=== PATIENT | male | born 2000 | race African-American/Black ===

== ENCOUNTER 2023-02-20 08:45 | Emergency (ER) | payer OTHER, SELFPAY ==
--- NOTE | ~2023-02-20 | XR_ITS ---
EXAMINATION: XR HAND, RIGHT CLINICAL INFORMATION: Middle finger crush injury. COMPARISON: None available. TECHNIQUE: PA, lateral, and oblique views of the right hand. An indicator arrow points to the distal aspect of the third digit. FINDINGS: The bones and soft tissues are normal. No fracture. Alignment is anatomic. Joint spaces are maintained. No erosions or soft tissue calcifications. XR/XR hand RT min 3V IMPRESSION: Unremarkable right hand. Specifically, the third digit appears intact.
[2023-02-20 08:49] VITALS: BP 130/72; PULSE 62; RESP 19; TEMP 36.6; O2SAT 98; BMI 26.0
--- NOTE | 2023-02-20 09:20 | ED.EXTPRO ---
HPI - Extremity Problem General Chief complaint: Extremity Injury, Upper Stated complaint: finger injury at work Time Seen by Provider: 02/20/23 09:17 Source: patient, RN notes reviewed and old records reviewed Mode of arrival: ambulatory History of Present Illness HPI Narrative: 22-year-old male with no significant past medical history presenting to the ED complaining of right 3rd digit crush injury/nail being pulled back s/p getting caught in running belt at work [employer]. Also reports slight injury to 2nd digit. Denies numbness, tingling, weakness, fever/chills. TDap unknown MD Complaint: extremity pain Onset (ago): hour(s) Related Data Allergies Allergy/AdvReac Type Severity Reaction Status Date / Time No Known Allergies Allergy Verified 02/20/23 08:49 Review of Systems Review of Systems: Constitutional: No Fever, No Chills ENT/Mouth: No Ear Pain, No Nasal Congestion, No sore throat, No Rhinorrhea, No Swallowing Difficulty Cardiovascular: No Chest Pain, No SOB Respiratory: No Cough, No Sputum, No Wheezing Musculoskeletal: + joint pain, No Myalgias, No Joint Swelling Skin: + Skin Lesions, No rash Neuro: No Weakness, No Numbness, No Paresthesias Yes all other systems are reviewed and are negative Constitutional: Constitutional: Reports as per [facility] Past Medical History Attestation statement: The following information was validated with the patient. Source: old records reviewed Social History Social History Advance Directives: No Physical Exam Vital Signs: Vital Signs: Last Vital Signs Temp 98 F 02/20/23 08:49 Pulse 62 02/20/23 08:49 Resp 19 02/20/23 08:49 BP 130/72 02/20/23 08:49 Pulse Ox 98 02/20/23 08:49 O2 Del Method Room Air 02/20/23 08:49 BMI result Body Mass Index 26.0 Const: General: cooperative, healthy appearing and no acute distress Orientation/consciousness: patient oriented x3 Limitations: no limitations HEENT: Head: Yes normal to inspection and Yes atraumatic Ears: hearing grossly normal bilaterally General nose exam: Normal external nose present Face and sinus: Yes normal facial exam Eyes: General: appearance normal, both eyes and all related structures EOM: EOMs intact bilaterally Neck: Neck: Yes normal visual inspection and Yes no meningeal signs Resp: Effort & Inspection: normal respiratory effort and no respiratory distress Cardio: Rate: regular rate Peripheral pulses: Peripheral pulses 2+ throughout Skin: Rashes: no rashes Wounds: no wounds Neuro: General: patient oriented x3, tone normal and no meningeal signs Cranial nerves: Yes CN's II-XII intact bilaterally Gait exam (Neuro): Normal gait present Extrem: Other: Right distal 3rd digit with mild swelling and lifted fingernail, nail bed intact without disruption. No appreciable laceration/avulsion. Tender to palpation. mild limited DIP extension, suspect from pain +small abrasion to right distal 2nd digit w/o nail involvement NV intact Course Course Course Narrative: XR hand RT min 3V IMPRESSION: Unremarkable right hand. Specifically, the third digit appears intact. >> patient placed in finger splint in hyper extension for possible tendon/avulsion injury, recommended close orthopedic follow-up Results discussed with patient including worrisome signs and symptoms and strict return precautions, and when to return to the emergency department. They verbalized understanding and feel safe for discharge at this time. Medications Administered Discontinued Medications Generic Name Dose Route Start Last Admin Trade Name Freq PRN Reason Stop Dose Admin Diphtheria/Tetanus/Acell Pertussis 0.5 ml 02/20/23 10:49 02/20/23 10:58 Diphth,Pertus(Acell),Tet Adult 0.5 Ml Syringe IM 02/20/23 10:50 0.5 ml .ONCE ONE Administration Medical Decision Making Medical Decision Making MDM Narrative: 22-year-old male with no significant past medical history presenting to the ED complaining of right 3rd digit crush injury/nail being pulled back s/p getting caught in running belt at work [employer]. On exam vital signs stable, NAD, nontoxic appearing, physical exam as above. Crush injury noted to right 3rd digit without open wound. Nail bed fully intact. Small abrasion to 2nd digit. Possible small avulsion/tendon injury. Rule out fracture/crush injury. No evidence of infection/cellulitis or laceration Plan: X-rays Please refer to course for remaining clinical decision making, interpretation of labs/imaging results, and discussions with consultants and/or family members. Differential Diagnosis Differential Diagnoses: The differential diagnosis associated with the presentation includes As above Independent Interpretation I performed an independent interpretation of an: Plain X-Ray Radiology Impression Discussion of test interpretation with radiology: I have reviewed the radiologist's reading. External Record Review External record reviewed: Inpatient record, Office record, Outpatient record, Prior outpatient labs, Prior outpatient radiology, Primary care record and Outside ED record Tests considered The following testing was considered but not selected: As above Prescription Management I considered prescription management with: Pain Medication and Antibiotic Discharge Plan Discharge Clinical Impression: Crush injury to finger Patient Disposition: Home, Self-Care Instructions: Crush Injury (ED) Additional Instructions: Your x-ray was unremarkable. We were concerned of a possible injury to your extensor tendon, please wear splint at all times, take off to shower however reapply immediately afterwards Please follow-up with orthopedic hand, make an appointment in 1 week Keep your nail intact as long as possible, your nail may fall off however avoid additional trauma to the area If begins to look infected return to the ED Referrals: [facility] [place]Provider Group] - 1 week Interventions: ED Discharge Assessment Last Done: 02/20/23 11:02 Discharge Date/Time: 02/20/23 11:02
--- NOTE | 2023-02-20 10:34 | MHC.EDTECH ---
finger splint was placed on right 3rd digit. pt tolerated well, PA aware
[2023-02-20] MEDS: Diphth,Pertus(ACell),Tet Adult 0.5 ML SYRINGE IM (10:58)
== END 2023-02-20 11:02 | disposition home or self-care (01) ==
PROVIDERS: Emergency Provider Emergency Medicine Emergency Medical Services
DX: S69.91XA Unspecified injury of right wrist, hand and finger(s), initial encounter (principal); S60.410A Abrasion of right index finger, initial encounter; W31.82XA Contact with other commercial machinery, initial encounter; Y93.89 Activity, other specified; Y92.59 Other trade areas as the place of occurrence of the external cause; Y99.0 Civilian activity done for income or pay
CPT/HCPCS: 29130; 73130; 90471; 90715; 99283; 99284

== ENCOUNTER 2023-02-26 10:28 | Outpatient (AMB) | payer OTHER, SELFPAY ==
[2023-02-26 10:32] VITALS: BMI 25.9
--- NOTE | 2023-02-26 10:32 | A.OFFVIS_ITS ---
Intake Vital Signs 02/26/23 10:32 Height 6 ft 2 in Weight 202 lb BMI 25.9 Intake Visit Reasons: FC- ? small avulsion/tendon injury 2/3 fingers rt Intake Note: Chip 22 yr old male presents today with his brother Akira for his W/C from 02/20/23 right hand middle finger. Patient states he is ambidextrous. State while at work he hand was caught in a cover belt injuring his finger. Seen in ED where xrays done and patient was splinted. Currently states he has no pain unless he removes his splint. Denies numbness, tingling or locking of any finger. Allergies No Known Allergies Allergy (Verified 02/26/23 10:32) HPI FC- ? small avulsion/tendon injury 2/3 fingers rt HPI Details 22-year-old male who presents in the office today with is brother (Akira), as a new patient, for an evaluation of right hand pain. The patient presented to the ED on 02/20/2023 status post a crushing injury to the right 3rd digit pulling the nail back when he got caught in the running belt at work. Also reported a possible injury to the right 2nd digit as well. X-rays of the right hand were obtained. He was placed in a finger splint in hyper-extension for a possible tendon/avulsion injury. The patient states he has no pain unless he removes the splint. He denies numbness, tingling, or locking in the digits. He reports his pain is located under the nail. Patient works at [employer]. Patient reports he is ambidextrous. [facility], LAT[facility] Surgical History (Updated 02/26/23 @ 10:39 by TYSON Miller) H/O eye surgery Social History (Updated 02/26/23 @ 10:33 by TYSON Miller) Current occupational status: employed Current occupation: box handler at [employer] Review of Systems Const All systems reviewed & are unremarkable except as noted in HPI and below Physical Exam Vital Signs: BMI result Body Mass Index 25.9 Const General: cooperative and no acute distress Orientation/consciousness: patient oriented x3 Resp Effort & Inspection: normal respiratory effort and able to speak in complete sentences Cardio Peripheral pulses: Peripheral pulses 2+ throughout Skin General skin exam: no rashes or lesions noted Neuro General: patient oriented x3 Extrem Other: Right middle finger: Normal to inspection. No ecchymosis, erythema, or edema. Some disruption in the nail bed with subungual hematoma. Able to perform full finger flexion, extension, abduction, adduction, finger cross, okay sign, and thumbs up without deficit. Able to make a closed fist. Sensation intact. Capillary refill is brisk. Radial pulse intact. Assessment & Plan Assessment & Plan (1) Crushing injury of right middle finger: Code(s): S67.192A - Crushing injury of right middle finger, initial encounter Plan Mr. Guallpa is a 22-year-old male who presents in the office today with is brother (Akira), as a new patient, for an evaluation of right hand pain. The patient presented to the ED on 02/20/2023 status post a crushing injury to the right 3rd digit pulling the nail back when he got caught in the running belt at work. Also reported a possible injury to the right 2nd digit as well. X-rays of the right hand were obtained. He was placed in a finger splint in hyper- extension for a possible tendon/avulsion injury. The patient states he has no pain unless he removes the splint. He denies numbness, tingling, or locking in the digits. He reports his pain is located under the nail. Patient works at [employer]. Patient reports he is ambidextrous. He can return to normal activities as tolerated. He can discontinue the use of the splint. Follow up will be PRN, or sooner if needed. X-rays of the right hand which were obtained while in the office today and were reviewed by me, Neli Peres PA-C, revealed no evidence of acute fracture or dislocation. X-rays of the right hand, obtained on 02/20/2023, revealed: Unremarkable right hand. Specifically, the third digit appears intact. Orders: Orders XR hand RT min 3V Today M79.643 - Pain in unspecified hand Patient Instructions: Scribed for Neli Peres PA-C by Lily Sam medical office specialist, on 02/26/2023 at 10:29 am, EST. Coding Level of Care Code New Pt Level 3 (00155) Diagnoses Crushing injury of right middle finger S67.192A
== END 2023-02-26 11:14 | disposition home or self-care (01) ==
PROVIDERS: Visit Provider Physician Assistant
DX: S67.192A Crushing injury of right middle finger, initial encounter (principal)
CPT/HCPCS: 99203

== ENCOUNTER 2023-02-26 10:28 | Outpatient (REF) | payer OTHER, SELFPAY ==
--- NOTE | ~2023-02-26 | XR_ITS ---
EXAMINATION: XR HAND, RIGHT CLINICAL INFORMATION: Pain. COMPARISON: None available. TECHNIQUE: PA, lateral, and oblique views of the right hand. FINDINGS: The bones and soft tissues are normal. No fracture. Alignment is anatomic. Joint spaces are maintained. No erosions or soft tissue calcifications. XR/XR hand RT min 3V IMPRESSION: Normal right hand.
== END 2023-02-26 10:29 | disposition home or self-care (01) ==
LOC: HO.HOSX 10:28
PROVIDERS: Visit Provider Physician Assistant
DX: S67.192A Crushing injury of right middle finger, initial encounter (principal)
CPT/HCPCS: 73130; 99202